=== PATIENT | male | born 1960 | race Caucasian/White ===

== ENCOUNTER 2018-03-26 08:05 | Day surgery (SDC) | payer OTHER ==
[2018-03-26] MEDS ORDERED: PROPOFOL 60 ML (10:13)
== END 2018-03-26 11:12 | disposition home or self-care (01) ==
LOC: GIL 08:05
DX: Z12.11 Encounter for screening for malignant neoplasm of colon (principal); K64.8 Other hemorrhoids
CPT/HCPCS: 45378